=== PATIENT | male | born 1975 | race African-American/Black ===

== ENCOUNTER 2025-01-10 20:05 | Emergency (ER) | payer MEDICAID ==
[~2025-01-10] VITALS: Ht 172.7 cm; Wt 88.0 kg
[2025-01-10 20:07] VITALS: TEMP 96.7; O2SAT 97
[2025-01-10] MEDS: KETOROLAC 30MG/ML VIAL IM ONE (20:58)
[2025-01-10] MEDS ORDERED: IBUP-1455 MT (21:23)
[2025-01-10] MEDS ORDERED: CYCL10TA21 MT (21:23)
[2025-01-10 21:50] VITALS: BP 148/95; PULSE 96; RESP 18; O2SAT 98
== END 2025-01-10 22:00 | disposition home or self-care (01) ==
LOC: ER 20:05
DX: S70.01XA Contusion of right hip, initial encounter (principal); M54.41 Lumbago with sciatica, right side; I10 Essential (primary) hypertension; W01.0XXA Fall on same level from slipping, tripping and stumbling without subsequent striking against object, initial encounter; Y93.89 Activity, other specified; Y92.89 Other specified places as the place of occurrence of the external cause; Y99.8 Other external cause status
CPT/HCPCS: 99283; 73502; 96372; J1885